=== PATIENT | female | born 1980 | race African-American/Black ===

== ENCOUNTER 2021-07-27 07:56 | Emergency (ER) | payer OTHER ==
[~2021-07-27] VITALS: Ht 170.2 cm; Wt 60.0 kg
[2021-07-27] MEDS ORDERED: LORAZEPAM 2MG/ML CPJ IM STA (08:42)
[2021-07-27] MEDS ORDERED: OLANZAPINE 10 MG/VIAL IM ONE (08:45)
[2021-07-27 09:49] LABS: CHLORIDE 112 mEq/L (98-107); HEMATOCRIT. 24.6 % (36.0-48.0); HEMOGLOBIN. 7.2 g/dL (12.0-16.0); MEAN CORPUSCULAR HEMOGLOBIN 18.1 pg (28.0-32.0); MEAN CORPUSCULAR VOLUME 62.3 fL (81.0-99.0); PLATELET 424 x1000/uL (130-400); RED BLOOD CELL COUNT 3.95 mill/uL (4.2-5.4); RED CELL DISTRIBUTION WIDTH 19.1 % (11.6-14.6)
[2021-07-27 09:54] LABS: ETHANOL BLOOD < 10 mg/dL
[2021-07-27 10:18] LABS: CLARITY URINE CLEAR (CLEAR); COLOR URINE YELLOW (YELLOW); KETONES URINE NEGATIVE (NEGATIVE); LEUKOCYTE ESTERASE URINE NEGATIVE (NEGATIVE); NITRITE URINE NEGATIVE (NEGATIVE); OCCULT BLOOD URINE NEGATIVE (NEGATIVE); PH URINE 6.5 (4.5-8.0); PROTEIN URINE NEGATIVE (NEGATIVE); SPECIFIC GRAVITY URINE 1.011 (1.005-1.030); UROBILINOGEN URINE 0.2 E.U./dL (0.2-1.0)
[2021-07-27 10:30] LABS: *AMPHETAMINES SCREEN URINE NEGATIVE (NEGATIVE); *BARBITURATES SCREEN URINE NEGATIVE (NEGATIVE); *BENZODIAZEPINES SCREEN URINE NEGATIVE (NEGATIVE); METHADONE URINE SCREEN NEGATIVE (NEGATIVE)
[2021-07-27 10:31] LABS: CANNABINOID URINE SCREEN NEGATIVE (NEGATIVE); OPIATES URINE SCREEN NEGATIVE (NEGATIVE)
[2021-07-27 10:31] LABS: PLATELET ESTIMATE INCREASED
[2021-07-27 10:36] LABS: *COCAINE SCREEN URINE PRESUMTIVE POSITIVE (NEGATIVE); PHENCYCLIDINE URINE SCREEN PRESUMTIVE POSITIVE (NEGATIVE)
[2021-07-28] MEDS ORDERED: LORAZEPAM 2MG/ML CPJ IM PRN ×2 (00:30→05:30)
[2021-07-28] MEDS: LORAZEPAM 2MG/ML CPJ IM PRN ×2 (05:23→20:43)
[2021-07-28] MEDS ORDERED: DIPHENHYDRAMINE 50MG/ML VIAL IM PRN (05:30)
[2021-07-28] MEDS ORDERED: HALOPERIDOL LACTATE 5MG/ML VIAL IM ONE (05:30)
[2021-07-28] MEDS: OLANZAPINE 5MG TABLET PO SCH ×2 (09:54→17:25)
[2021-07-28] MEDS: FLUOXETINE HCL 10 MG CAPSULE PO SCH (09:54)
[2021-07-28] MEDS ORDERED: OLANZAPINE 10 MG/VIAL IM ONE (20:45)
[2021-07-29] MEDS: DIVALPROEX SODIUM 250MG DR TABLET PO SCH ×3 (00:26→21:00)
[2021-07-29] MEDS: OLANZAPINE 5MG TABLET PO SCH ×2 (17:00→17:25)
[2021-07-29] MEDS: FLUOXETINE HCL 10 MG CAPSULE PO SCH (17:24)
[2021-07-30] MEDS: OLANZAPINE 5MG TABLET PO SCH (09:00)
[2021-07-30] MEDS: FLUOXETINE HCL 10 MG CAPSULE PO SCH (10:20)
[2021-07-30] MEDS: DIVALPROEX SODIUM 250MG DR TABLET PO SCH (10:21)
[2021-07-30 18:25] VITALS: BP 124/72
== END 2021-07-30 18:32 | disposition home or self-care (01) ==
LOC: EDBD 07:56 → ER 07:56
DX: R45.851 Suicidal ideations (principal); F14.129 Cocaine abuse with intoxication, unspecified; F16.129 Hallucinogen abuse with intoxication, unspecified; R45.850 Homicidal ideations; Z20.822 Contact with and (suspected) exposure to COVID-19; D64.9 Anemia, unspecified; R51.9 Headache, unspecified; R46.2 Strange and inexplicable behavior; R45.1 Restlessness and agitation; F32.9 Major depressive disorder, single episode, unspecified; Z75.1 Person awaiting admission to adequate facility elsewhere; Z78.1 Physical restraint status
CPT/HCPCS: 36415; 70450; 80053; 80305; 80320; 81003; 85025; 96372; 99291; J1200; J1630; J2060; J3490; G0480